=== PATIENT | male | born 1980 | race Caucasian/White ===

== ENCOUNTER → 2019-07-25 | Outpatient (CLI) | payer OTHER | LOC: GMAM 13:24 | PROVIDERS: ATTEND Family Medicine | DX: M25.50 Pain in unspecified joint (principal); H05.20 Unspecified exophthalmos; K21.0 Gastro-esophageal reflux disease with esophagitis; R35.1 Nocturia ==

== ENCOUNTER → 2019-09-05 | Outpatient (CLI) | payer OTHER | LOC: RESP 18:13 | PROVIDERS: ATTEND Family Medicine | DX: R07.9 Chest pain, unspecified (principal) ==